=== PATIENT | female | born 1975 | race Caucasian/White ===

== ENCOUNTER 2019-01-22 07:22 | Day surgery (SDC) | payer OTHER ==
[~2019-01-22] VITALS: Ht 160 cm; Wt 71.7 kg
[~2019-01-22 07:22] MED LIST: ALBU90OI; AMOCLA875 PO; AMOX500 PO; Cyclobenzaprine5 MG PO; HYDACE5 PO; KETO10 PO; LINZESS72 MCG; MULVITMINE PO; ONDA4 PO; ONDA8ODT MM; PROM25 PO; PSEU120ER PO; Percocet 5-3251 EACH PO; Prednisone20 MG PO
== END 2019-01-22 09:20 | disposition home or self-care (01) ==
LOC: ORSCSDS 07:22
PROVIDERS: Surgery
PROC: 0DBK8ZX Excision of Ascending Colon, Via Natural or Artificial Opening Endoscopic, Diagnostic (ICD-10-PCS; principal; 2019-01-22 08:30)
DX: Z12.11 Encounter for screening for malignant neoplasm of colon (principal); Z80.0 Family history of malignant neoplasm of digestive organs; D12.2 Benign neoplasm of ascending colon; Z87.891 Personal history of nicotine dependence
CPT/HCPCS: 88305; J2704; J7120

== ENCOUNTER → 2019-09-17 | Outpatient (CLI) | payer OTHER | END | disposition home or self-care (01) | LOC: PLD 07:27 → LAB SHORT 07:27 | DX: L30.8 Other specified dermatitis (principal) | CPT/HCPCS: 88305 ==

== ENCOUNTER → 2020-07-01 | Outpatient (CLI) | payer OTHER | LOC: LAB SHORT 11:42 → LAB 11:42 | DX: L98.9 Disorder of the skin and subcutaneous tissue, unspecified (principal); L30.8 Other specified dermatitis | CPT/HCPCS: 88305 ==

== ENCOUNTER 2022-06-01 07:37 | Day surgery (SDC) | payer OTHER ==
[~2022-06-01] VITALS: Ht 160 cm; Wt 78.0 kg
[2022-06-01] MEDS ORDERED: HYDSUL200 (08:00)
[2022-06-01] MEDS ORDERED: METTREX2.5 (08:00)
[2022-06-01] MEDS ORDERED: ATOR10 (08:00)
[2022-06-01] MEDS ORDERED: FOLI1 (08:00)
[2022-06-01] MEDS ORDERED: TRAM50 (08:01)
[2022-06-01] MEDS ORDERED: XOLAIR150 MG (08:01)
[2022-06-01] MEDS ORDERED: ONDA4ODT (08:01)
[2022-06-01 09:44] VITALS: BP 110/52
--- NOTE | 2022-06-01 09:51 | NUR ---
06/01/22 0951 Alfred Thomas SCOPE #[id number] USED FOR PROCEDURE
== END 2022-06-01 09:35 | disposition home or self-care (01) ==
LOC: ORSCSDS 07:37
PROVIDERS: Internal Medicine Gastroenterology
PROC: 0DB98ZX Excision of Duodenum, Via Natural or Artificial Opening Endoscopic, Diagnostic (ICD-10-PCS; principal; 2022-06-01 08:45)
PROC: 0DB68ZX Excision of Stomach, Via Natural or Artificial Opening Endoscopic, Diagnostic (ICD-10-PCS; principal; 2022-06-01 08:45)
PROC: 0DB58ZX Excision of Esophagus, Via Natural or Artificial Opening Endoscopic, Diagnostic (ICD-10-PCS; principal; 2022-06-01 08:45)
DX: K30 Functional dyspepsia (principal); K29.00 Acute gastritis without bleeding; K21.00 Gastro-esophageal reflux disease with esophagitis, without bleeding; Z80.0 Family history of malignant neoplasm of digestive organs; M06.9 Rheumatoid arthritis, unspecified; Z79.899 Other long term (current) drug therapy; Z87.891 Personal history of nicotine dependence
CPT/HCPCS: 88305; 88341; 88342; J2704; J7120

== ENCOUNTER 2023-02-13 06:58 | Day surgery (SDC) | payer OTHER ==
[~2023-02-13] VITALS: Ht 160 cm; Wt 89.0 kg
[~2023-02-13 06:58] MED LIST changes: +ATOR10; +FOLI1; +HYDSUL200; +METTREX2.5; +ONDA4ODT; +TRAM50; +XOLAIR150 MG
[2023-02-13] MEDS ORDERED: HADLIMA(CF40 MG/0.1 (07:15)
[2023-02-13] MEDS ORDERED: GABA100 (07:15)
[2023-02-13 09:27] VITALS: BP 114/73
== END 2023-02-13 09:18 | disposition home or self-care (01) ==
LOC: ORSCSDS 06:58
PROVIDERS: Specialist
PROC: 0DJD8ZZ Inspection of Lower Intestinal Tract, Via Natural or Artificial Opening Endoscopic (ICD-10-PCS; principal; 2023-02-13 08:00)
DX: Z12.11 Encounter for screening for malignant neoplasm of colon (principal); K64.8 Other hemorrhoids; K57.30 Diverticulosis of large intestine without perforation or abscess without bleeding; M32.9 Systemic lupus erythematosus, unspecified; M06.9 Rheumatoid arthritis, unspecified; K21.00 Gastro-esophageal reflux disease with esophagitis, without bleeding; Z79.899 Other long term (current) drug therapy
CPT/HCPCS: J2704; J7120

== ENCOUNTER → 2024-04-11 | Outpatient (CLI) | payer OTHER ==
[~2024-04-11] MED LIST changes: -ATOR10; +ATOR10 PO; +Carafate1 GM/10 ML PO; +ESOM20 PO; -FOLI1; +FOLI1 PO; +GABA100; +HADLIMA(CF40 MG/0.1 SC; -HYDSUL200; +HYDSUL200 PO; -METTREX2.5; +Methotrexa25 MG/1 ML; -ONDA4ODT; +Ondansetron Odt8 MG PO; -TRAM50; +TRAM50 PO; -XOLAIR150 MG; +XOLAIR150 MG/1 M
[2024-04-17 12:30] LABS: HPV HIGH RISK BY TMA Not Detected; HPV SOURCE Cervical/Vag
== END | disposition home or self-care (01) ==
LOC: LAB 18:05 → LAB SHORT 18:05
PROVIDERS: Family Medicine
DX: Z01.419 Encounter for gynecological examination (general) (routine) without abnormal findings (principal)
CPT/HCPCS: 87624; G0123

== ENCOUNTER → 2024-09-12 | Outpatient (CLI) | payer OTHER ==
[2024-09-12 15:17] LABS: BASOPHILS ABSOLUTE AUTO 0.03 K/mm3 (0.00-0.23); BASOPHILS PERCENT AUTO 1 % (0-2); EOSINOPHILS ABSOLUTE AUTO 0.09 K/mm3 (0.00-0.68); EOSINOPHILS PERCENT AUTO 1 % (0-6); Hematocrit 44.1 % (33.0-51.0); Hemoglobin 14.7 g/dL (11.5-16.0); IMMATURE GRAN ABSOLUTE AUTO 0.01 K/mm3 (0.00-0.10); IMMATURE GRAN PERCENT AUTO 0 % (0-1); LYMPHOCYTES ABSOLUTE AUTO 2.20 K/mm3 (0.84-5.20); LYMPHOCYTES PERCENT AUTO 34 % (21-46); MONOCYTES ABSOLUTE AUTO 0.54 K/mm3 (0.16-1.47); MONOCYTES PERCENT AUTO 8 % (4-13); Mean Corpuscular HGB Conc 33.3 g/dL (31.5-36.5); Mean Corpuscular Volume 88 fL (80-100); NEUTROPHILS ABSOLUTE AUTO 3.58 K/mm3 (1.96-9.15); NEUTROPHILS PERCENT AUTO 55 % (41-73); NRBC ABSOLUTE 0.00 K/mm3 (0.00-0.02); NRBC Auto 0.0 /100 WBC (0.0-0.2); Platelet Count 227 K/mm3 (150-400); RDW Coefficient Variation 13.3 % (11.7-14.2); RDW Standard Deviation 42.5 fL (35.1-46.3)
[2024-09-12 15:26] LABS: Alanine Aminotransfer (ALT/SGP 37.0 U/L (12-78); Albumin, Blood 4.4 g/dL (3.4-5.0); Albumin/Globulin Ratio 1.6 (0.8-1.8); Anion Gap 12.0 mmol/L (3-11); Aspartate Aminotrans (AST/SGOT 20.0 U/L (12-37); Bilirubin, Total 0.4 mg/dL (0.1-1.0); Blood Urea Nitrogen 19.0 mg/dL (8-24); CO2, Blood 27.0 mmol/L (21-32); Calcium, Blood 9.5 mg/dL (8.5-10.1); Chloride, Blood 102.0 mmol/L (98-108); Creatinine, Blood 0.68 mg/dL (0.40-1.00); Globulin, Blood 2.8 g/dL (2.2-4.0); Glucose, Blood 95.0 mg/dL (70-99); Potassium, Blood 4.1 mmol/L (3.5-5.5); Sodium, Blood 137.0 mmol/L (136-145); Total Protein, Blood 7.2 g/dL (6.4-8.2)
== END ==
LOC: LAB SHORT 15:12 → LAB 15:12
PROVIDERS: Physician Assistant
DX: R11.0 Nausea (principal)
CPT/HCPCS: 80053; 85025